=== PATIENT | male | born 2000 | race Two or more races ===

== ENCOUNTER 2022-09-29 08:27 | Emergency (ER) | payer OTHER ==
[~2022-09-29] VITALS: Ht 165.1 cm; Wt 68.0 kg
== END 2022-09-29 09:43 | disposition home or self-care (01) ==
LOC: ER 08:27
DX: S01.81XA Laceration without foreign body of other part of head, initial encounter (principal); X58.XXXA Exposure to other specified factors, initial encounter; Y93.18 Activity, surfing, windsurfing and boogie boarding; Y92.832 Beach as the place of occurrence of the external cause; Y99.9 Unspecified external cause status

== ENCOUNTER 2024-01-26 19:18 | Emergency (ER) | payer OTHER ==
[~2024-01-26] VITALS: Ht 165.1 cm; Wt 72.6 kg
[2024-01-26] MEDS ORDERED: KETOROLAC TROMETHAMINE 60 MG VIAL IM ONE (20:00)
[2024-01-26] MEDS ORDERED: CEFTRIAXONE SODIUM 1,000 MG VIAL IM ONE (20:00)
[2024-01-26] MEDS ORDERED: LIDOCAINE HCL 1% 10ML VIAL PERCUT ONE (20:15)
[2024-01-26] MEDS ORDERED: TETANUS & DIPHTHERIA TOX,ADULT 0.5 ML VIAL IM ONE (20:15)
[2024-01-26] MEDS ORDERED: CEFAZOLIN SODIUM 1,000 MG VIAL IV ONE (21:15)
[2024-01-26] MEDS ORDERED: CEPHALEXIN750 MG PO (23:16)
[2024-01-26] MEDS ORDERED: PEPCID AC20 MG PO (23:16)
== END 2024-01-26 23:49 | disposition home or self-care (01) ==
LOC: ER 19:20
DX: S01.81XA Laceration without foreign body of other part of head, initial encounter (principal); S01.80XA Unspecified open wound of other part of head, initial encounter; X58.XXXA Exposure to other specified factors, initial encounter; Y93.18 Activity, surfing, windsurfing and boogie boarding; Y92.89 Other specified places as the place of occurrence of the external cause; Y99.8 Other external cause status
CPT/HCPCS: 13132; 13133 ×12; 70450; 90471; 90714; J1670

== ENCOUNTER 2024-02-07 00:11 | Emergency (ER) | payer OTHER ==
[~2024-02-07] VITALS: Ht 165.1 cm; Wt 67.1 kg
[~2024-02-07 00:11] MED LIST: CEPHALEXIN750 MG PO; PEPCID AC20 MG PO
== END 2024-02-07 03:14 | disposition home or self-care (01) ==
LOC: ER 00:13
DX: Z48.02 Encounter for removal of sutures (principal)